=== PATIENT | male | born 1975 | race Caucasian/White ===

== ENCOUNTER 2023-01-08 16:33 | Emergency (ER) | payer SELFPAY ==
[2023-01-08] VITALS (9 sets, daily range): BP systolic 113–129; BP diastolic 74–90
[~2023-01-08] VITALS: Ht 182.9 cm; Wt 86.2 kg
[2023-01-08] MEDS ORDERED: TOPROL XL25 M1 PO (17:01)
[2023-01-08] MEDS ORDERED: ATORVASTATIN CA40 MG PO (17:01)
[2023-01-08] MEDS ORDERED: PAROXETINE10 MG PO (17:02)
[2023-01-08] MEDS ORDERED: ZESTRIL40 MG PO (17:03)
[2023-01-08] MEDS ORDERED: BUPROPION HCL150 MG PO (17:03)
[2023-01-08 17:11] LABS: BASO% 0.2 % (0-3); EOS% 0.2 % (0-8); HEMATOCRIT 50.1 % (39.0-50.0); HEMOGLOBIN 16.2 g/dl (14.0-18.0); IMMATURE GRANULOCYTES 0.9 % (0.0-5.0); MEAN CELL VOLUME 96.2 fL CALC (80.0-100.0); MEAN CORPUSCULAR HGB 31.1 pG CALC (26.0-32.0); MEAN CORPUSCULAR HGB CONC 32.3 g/dL CAL (32.0-36.0); MONO% 9.1 % (2-13); NEUT# 11.29 thou/uL (1.82-7.42); NEUT% 81.6 % (42-76); RED BLOOD COUNT 5.21 mill/uL (4.70-6.10); RED CELL DISTRI WIDTH 12.2 % (11.5-15.5)
[2023-01-08 17:18] LABS: ALBUMIN 4.5 g/dL (3.2-5.0); ALKALINE PHOSPHATASE 121 u/l (38-126); BUN 20 mg/dL (9-20); BUN/CREATININE RATIO 23 (12-20 (CALC)); CARBON DIOXIDE 24 mmol/l (22-30); CHLORIDE 101 mmol/l (95-108); CREATININE 0.9 mg/dL (0.7-1.3); GFR FOR AFR.AMER. > 60 ML/MIN (>=60 (CALC)); GFR OTHER RACES > 60 ML/MIN (>=60 (CALC)); POTASSIUM 3.8 mmol/l (3.5-5.1); SGOT/AST 33 u/l (17-59); TOTAL PROTEIN 8.2 g/dL (6.3-8.2)
[2023-01-08 17:31] LABS: ANION GAP 15 (6-22 (CALC)); BILIRUBIN, TOTAL 1.4 mg/dL (0.2-1.3); SODIUM 136 mmol/l (137-146)
[2023-01-08] MEDS ORDERED: DOXYCYCLINE100 MG PO (19:58)
[2023-01-08 20:27] LABS: URINE BILIRUBIN - DIPSTICK NEGATIVE (NEGATIVE); URINE BLOOD DIPSTICK TRACE-INTACT (NEGATIVE); URINE COLOR YELLOW; URINE GLUCOSE - DIPSTICK NEGATIVE (NEGATIVE); URINE KETONE 40 mg/dL (NEGATIVE); URINE LEUK ESTERASE NEGATIVE (NEGATIVE); URINE NITRITE - DIPSTICK NEGATIVE (Negative); URINE PROTEIN - DIPSTICK NEGATIVE (NEG-TRACE); URINE SPECIFIC GRAVITY <=1.005
== END 2023-01-08 20:15 | disposition home or self-care (01) | DRG 195 ==
LOC: ED 16:33 → ED-I 18:50 → ED 20:15
PROVIDERS: Family Medicine
DX: J18.9 Pneumonia, unspecified organism (principal); I10 Essential (primary) hypertension; Z20.822 Contact with and (suspected) exposure to COVID-19